=== PATIENT | female | born 1960 | race Caucasian/White ===

== ENCOUNTER → 2016-08-15 | Outpatient (CLI) | payer MEDICAID ==
[~2016-08-15] MED LIST: AMLO-145 PO; CALC500T PO; CHOL50009 PO; CLON-429 PO; DOCU-144 PO; FER325 PO; GABA300C PO; HYDR-3720 PO; LANT3I SC; LISI20TA11 PO; NOVO3I SC; PRED20TA PO
--- NOTE | 2016-08-17 11:50 | RADRPT ---
Echocardiogram Report Patient Name: CECILE MEANS Gender: Female Date: 1960 Study Date: 15-Aug-2016 Historic Preservationist: Florecita Pederson RDCS Location: EKG Ref. Physician: CRISTOBAL EDWARDS Quality: Good Procedures: Transthoracic echocardiogram with complete 2D, M-Mode, and doppler examination. Indications: Breast Cancer. 2D/M Mode Doppler Measurement Value Normal Ranges Measurement Value Normal Ranges LVIDd 2D 4.6 3.5 - 5.6 cm AV Peak Castro 1.6 m/sec LVIDs 2D 3.2 2.1 - 4.1 cm AV Peak PG 10.0 mmHg FS 2D 31.8 % AI Peak PG 40.0 mmHg LVPWd 2D 0.9 0.6 - 1.1 cm AI Peak Castro 3.2 m/sec IVSd 2D 0.9 0.6 - 1.1 cm AI PHT 630.0 msec IVS/LVPW 2D 1.0 LVOT Peak Castro 1.3 m/sec AoR Diam 2D 2.6 2.0 - 3.7 cm LVOT Peak PG 7.0 mmHg LA/Ao 2D 1 0 - 1 MV E Peak Castro 0.9 m/sec EDV 2D 98.6 cm3 MV A Peak Castro 1.1 m/sec ESV 2D 31.3 cm3 MV E/A 0.9 LA Dimen 2D 3.7 2.3 - 4.0 cm MV Decel Time 165 msec MV E/A 0.9 TR Peak Castro 2.6 m/sec TR Peak PG 27.0 mmHg RVSP 30.0 mmHg Findings Left Ventricle: Normal left ventricular systolic function. Lower limits of normal systolic function. Normal left ventricular cavity size. Normal left ventricular wall thickness. Ejection fraction is visually estimated at 50 %. Tissue Doppler/Mitral Doppler indices are consistent with impaired relaxation (Stage I diastolic dysfunction). E/E`=12. Low normal EF50-55%,Mildly increased e/e` ratio possibly c/w elevated LA pressure. Right Ventricle: Normal right ventricular size. Normal right ventricular systolic function. Left Atrium: The left atrium is normal in size. Right Atrium: The right atrium is normal in size. Mitral Valve: Normal appearance of the mitral valve. Mild mitral annular calcification. Mild mitral valve regurgitation. Aortic Valve: Aortic valve not well visualized. No hemodynamically significant aortic stenosis by doppler. Aortic cusps appear mildly calcified. Trileaflet aortic valve. Trace aortic valve regurgitation. Tricuspid Valve: Normal appearance of the tricuspid valve. Normal right ventricular systolic pressure. Estimated peak PA systolic pressure 30 mmHg. There is trace tricuspid regurgitation. Pulmonic Valve: Normal pulmonic valve appearance. Pericardium: Normal pericardium with no significant pericardial effusion. Aorta: Normal aortic root. IVC: Normal size and normal respiratory collapse consistent with normal right atrial pressure. Conclusions 1.Normal left ventricular systolic function. Lower limits of normal systolic function. Normal left ventricular cavity size. Normal left ventricular wall thickness. Ejection fraction is visually estimated at 50 %. Tissue Doppler/Mitral Doppler indices are consistent with impaired relaxation (Stage I diastolic dysfunction). E/E`=12. Low normal EF50-55%,Mildly increased e/e` ratio possibly c/w elevated LA pressure. 2.The left atrium is normal in size. 3.The right atrium is normal in size. 4.Normal appearance of the mitral valve. Mild mitral annular calcification. Mild mitral valve regurgitation. 5.Aortic valve not well visualized. No hemodynamically significant aortic stenosis by doppler. Aortic cusps appear mildly calcified. Trileaflet aortic valve. Trace aortic valve regurgitation. 6.Normal appearance of the tricuspid valve. Normal right ventricular systolic pressure. Estimated peak PA systolic pressure 30 mmHg. There is trace tricuspid regurgitation. 7.Normal pericardium with no significant pericardial effusion. 8.Normal size and normal respiratory collapse consistent with normal right atrial pressure. 9.No Vegetation, masses, or thrombi seen. Electronically Signed By: Maxime Goyal 17-Aug-2016 11:49:34 -0700 Patient Name: CECILE MEANS Study Date: 15-Aug-2016 [id number]
== END | disposition home or self-care (01) ==
LOC: EKG 09:00
PROVIDERS: ATTEND Internal Medicine Hematology & Oncology
DX: C50.919 Malignant neoplasm of unspecified site of unspecified female breast (principal)
CPT/HCPCS: 93306

== ENCOUNTER 2017-01-09 05:55 | Day surgery (SDC) | payer MEDICAID, OTHER ==
[2016-10-23 11:03] VITALS: BMI 36.7
[~2017-01-09] VITALS: Ht 165.1 cm; Wt 97.1 kg
[2017-01-09] VITALS (9 sets, daily range): BP systolic 130–164; BP diastolic 59–77; PULSE 66–78; RESP 15–17; Ht 165.1 cm; Wt 97.1 kg
[~2017-01-09 05:55] MED LIST changes: +CEFAZOLIN 2 GM/50 ML (PMX) 50 ML IVPB ONE; +SOD CHLORIDE 0.9% 1,000 ML IV SCH
--- NOTE | 2017-01-09 07:00 | RADRPT ---
PROCEDURE: XR Chest. CLINICAL INDICATION: Preop TECHNIQUE: AP Portable chest. COMPARISON: 10/19/2015 FINDINGS: The left Port-A-Cath is unchanged in position. The cardiomediastinal silhouette is enlarged. The aorta is normal. The right hemidiaphragm is elev ated. No focal consolidation, pleural effusion or pneumothorax is seen. The osseous structures are intact. IMPRESSION: No radiographic evidence of acute cardiopulmonary disease. Unchanged left Port-A-Cath. Cardiomegaly. Physician Delfina Date Time Electronically viewed and signed by Ryan Bowser Physician on 01/09/2017 07:00 CS/
[2017-01-09 07:11] LABS: BASOPHILS % 0.3 % (0.0-2.0); HEMATOCRIT 37.4 % (37.0-47.0); HEMOGLOBIN 12.7 g/dl (12.0-16.0); LYMPHOCYTES # 1.7 10^3/ul (0.8-2.9); LYMPHOCYTES % 26.1 % (15.0-51.0); MEAN CORPUSCULAR HEMOGLOBIN 30.5 pg (29.0-33.0); MEAN CORPUSCULAR VOLUME 89.7 fl (82.0-101.0); MEAN PLATELET VOLUME 9.5 fl (7.4-10.4); MONOCYTE # 0.6 10^3/ul (0.3-0.9); MONOCYTES % 8.5 % (0.0-11.0); NEUTROPHILS % 64.2 % (39.0-77.0); PLATELET COUNT 208 10^3/UL (140-415); RED BLOOD COUNT 4.17 10^6/ul (4.20-5.40); WHITE BLOOD COUNT 6.6 10^3/ul (4.8-10.8)
[2017-01-09] MEDS ORDERED: VALA500T PO (07:18)
[2017-01-09] MEDS ORDERED: [UNRECOGNIZED DRUG - OTHER] (07:18)
[2017-01-09] MEDS ORDERED: IMMUNOGLOBULIN (07:18)
[2017-01-09] MEDS ORDERED: ALEN35TA23 PO (07:18)
[2017-01-09] MEDS ORDERED: EXEM25TA PO (07:18)
[2017-01-09 07:31] LABS: INR 0.9; PROTIME 12.1 Sec (12.2-14.2); PT RATIO 0.9
[2017-01-09 07:41] LABS: ALBUMIN 3.7 g/dl (3.3-4.9); ALBUMIN/GLOBULIN RATIO 0.64; BILIRUBIN,INDIRECT 0.4 mg/dl (0-1.1); BILIRUBIN,TOTAL 0.4 mg/dl (0.2-1.3); TOTAL PROTEIN 9.4 g/dl (6.1-8.1)
[2017-01-09 07:43] LABS: CREATININE 0.64 mg/dl (0.44-1.00); POTASSIUM 4.7 mmol/L (3.5-5.1)
[2017-01-09] MEDS ORDERED: BUPIVACAINE 0.5%/EPI (SDV) 10 ML INJ ONE (07:54)
[2017-01-09] MEDS ORDERED: CEFAZOLIN 2 GM/50 ML (PMX) 50 ML IVPB ONE (08:00)
[2017-01-09] MEDS ORDERED: SOD CHLORIDE 0.9% 1,000 ML IV ONE (08:00)
[2017-01-09] MEDS ORDERED: LABETALOL HCL 20MG INJ IV PRN (08:30)
[2017-01-09] MEDS ORDERED: OXYCODONE/ACETAMINOPHEN (5/325) TAB PO PRN ×2 (08:30)
[2017-01-09] MEDS ORDERED: FENTAnyl 50 MCG/ML VIAL IV PRN ×3 (08:30)
[2017-01-09] MEDS ORDERED: HYDROmorphONE (0.2 MG/ML) 10ML SYG IV PRN ×3 (08:30)
[2017-01-09] MEDS ORDERED: MIDAZOLAM 1 MG/ML 2 ML INJ IV PRN (08:30)
[2017-01-09] MEDS ORDERED: DIPHENHYDRAMINE 50 MG INJ IV PRN (08:30)
[2017-01-09] MEDS ORDERED: EPHEDrine SULFATE 50 MG/5 ML SYG IV PRN (08:30)
[2017-01-09] MEDS ORDERED: METOCLOPRAMIDE 10 MG INJ IV PRN (08:30)
[2017-01-09] MEDS ORDERED: MEPERIDINE 25 MG INJ IV PRN (08:30)
[2017-01-09] MEDS ORDERED: ONDANSETRON 4 MG INJ IV PRN (08:30)
[2017-01-09] MEDS ORDERED: hydrALAzine 20 MG INJ IV PRN (08:30)
[2017-01-09] MEDS ORDERED: LIDOCAINE 2% (SDV) 5 ML INJ ONE (08:43)
[2017-01-09] MEDS ORDERED: METOCLOPRAMIDE 10 MG INJ ONE (08:43)
[2017-01-09] MEDS ORDERED: MEPERIDINE 100 MG INJ ONE (08:43)
[2017-01-09] MEDS ORDERED: ONDANSETRON 4 MG INJ ONE (08:43)
[2017-01-09] MEDS ORDERED: PROPOFOL 20 ML ONE (08:43)
[2017-01-09] MEDS ORDERED: CEFAZOLIN 1 GM INJ ONE (09:10)
[2017-01-09] MEDS ORDERED: NALOXONE (0.4 MG/ML) INJ ONE (09:32)
--- NOTE | 2017-01-09 09:38 | OPR ---
Date/Time of Note Date/Time of Note DATE: 01/09/17 TIME: 09:36 Operative Report Preoperative Diagnosis History of right breast cancer need for excision of right chest wall nodule Postoperative Diagnosis Same Operation/Procedure Performed Excision of right chest wall nodule Surgeon: MAMTA WANG MD academic assistant: ABRAM SARAH MD Anesthesia Type: general Estimated Blood Loss: 0 - 10 ml's Specimens Right chest wall nodule Grafts/Implants: none Complications: no MAMTA WANG MD Jan 09, 2017 09:38
--- NOTE | 2017-01-09 10:02 | OPR ---
DATE OF OPERATION: 01/09/2017 PREOPERATIVE DIAGNOSIS: History of right breast cancer. The patient presents with a right breast nodule in the right chest wall nodules. Need for excisional biopsy of right chest wall nodule. POSTOPERATIVE DIAGNOSIS: History of right breast cancer. The patient presents with a right breast nodule in the right chest wall nodules. Need for excisional biopsy of right chest wall nodule. procedures. OPERATION PERFORMED: Excision of right chest wall nodule. ANESTHESIA: General. ANESTHESIOLOGIST: Dr. Ellis. SURGEON: Dr. Justino Griffin. LOCKSTITCH WAISTLINE JOINER: Dr. Viera. INDICATIONS FOR PROCEDURE: The patient is an unfortunate 56-year- old female that is status post right partial mastectomy for an advanced breast cancer. She presents with nodular changes of her right chest wall concerning for recurrence. She consented for excision of a nodule and was scheduled for surgery. OPERATIVE PROCEDURE: The patient brought to the operating theater and placed under general anesthesia. The right anterior thoracic wall was prepped and draped in the usual sterile fashion. There were multiple nodules. One that looked quite suspicious was excised in elliptical fashion with a 15-blade scalpel, removed and sent for permanent pathologic analysis. The wound was irrigated. Bleeding was controlled with cautery and the incision was then reapproximated with 2-0 nylon sutures in a vertical mattress fashion. The patient tolerated the procedure well. ESTIMATED BLOOD LOSS: 5 mL. COMPLICATIONS: There were no complications and the patient was transferred in stable condition to the recovery room. Dictated By: Justino Griffin MD /vimal/gio /Document#: [id number]
--- NOTE | 2017-01-09 13:52 | RADRPT ---
Vent Rate: 63 bpm RR Interval: 0 msec MA Interval: 154 msec QRS Duration: 110 msec QT Interval: 430 msec QTC Interval: 440 msec P-R-T [place]: 54 - -9 - 152 degrees Normal sinus rhythm Left ventricular hypertrophy with repolarization abnormality Abnormal ECG Electronically Signed By: Diego Philippe [id number]
== END 2017-01-09 11:30 | disposition home or self-care (01) ==
LOC: SDS 05:55
PROVIDERS: ATTEND Surgery Surgical Oncology
DX: C50.911 Malignant neoplasm of unspecified site of right female breast (principal); E11.9 Type 2 diabetes mellitus without complications; I10 Essential (primary) hypertension; E66.01 Morbid (severe) obesity due to excess calories; Z68.35 Body mass index [BMI] 35.0-35.9, adult; Z88.2 Allergy status to sulfonamides
CPT/HCPCS: 19120; 71010; 80053; 82962; 85025; 85610; 85730; 88307; 93005; J0690; J2175; J2310; J2405; J2765; Z7512; Z7610

== ENCOUNTER 2017-10-12 17:14 | Emergency (ER) | END 2017-10-13 03:30 | disposition home or self-care (01) ==

== ENCOUNTER 2017-10-18 19:11 | Inpatient (IN) | END 2017-10-20 17:09 | disposition home or self-care (01) | DRG 683 ==

== ENCOUNTER 2017-10-23 15:12 | Outpatient (CLI) | END 2017-10-23 16:41 | disposition home or self-care (01) ==

== ENCOUNTER 2017-11-06 14:47 | Outpatient (CLI) | END 2017-11-06 16:01 | disposition home or self-care (01) ==